=== PATIENT | male | born 1960 | race Caucasian/White ===

== ENCOUNTER 2022-12-08 09:28 | Outpatient (CLI) | payer OTHER | END 2022-12-08 09:32 | disposition home or self-care (01) | LOC: SONOGRAMA 09:28 | DX: M25.511 Pain in right shoulder (principal) ==

== ENCOUNTER 2024-09-12 13:13 | Outpatient (CLI) | payer OTHER | END 2024-09-12 13:33 | disposition home or self-care (01) | LOC: TOM 13:13 | PROVIDERS: ATTEND Internal Medicine | DX: M54.50 Low back pain, unspecified (principal); M47.27 Other spondylosis with radiculopathy, lumbosacral region ==